=== PATIENT | male | born 1970 | race Two or more races ===

== ENCOUNTER 2024-03-12 14:54 | Emergency (ER) | payer MEDICAID ==
[~2024-03-12] VITALS: Ht 167.6 cm; Wt 77.3 kg
[2024-03-12 15:14] VITALS: BP 118/80; PULSE 110; RESP 18; TEMP 98.2; O2SAT 98
== END 2024-03-12 17:41 | disposition left against medical advice (07) ==
LOC: EMS 14:54
DX: M25.511 Pain in right shoulder (principal); Z53.21 Procedure and treatment not carried out due to patient leaving prior to being seen by health care provider
CPT/HCPCS: 93005

== ENCOUNTER 2024-03-13 17:10 | Emergency (ER) | payer MEDICAID ==
[~2024-03-13] VITALS: Ht 170.2 cm; Wt 68.2 kg
[2024-03-13 17:16] VITALS: BP 127/76; PULSE 114; RESP 16; TEMP 98.4; O2SAT 98
[2024-03-13] MEDS: IBUPROFEN 600 MG TABLET PO ONE (18:44)
== END 2024-03-13 18:50 | disposition home or self-care (01) ==
LOC: EMS 17:10
DX: M25.511 Pain in right shoulder (principal); F17.210 Nicotine dependence, cigarettes, uncomplicated
CPT/HCPCS: 99283

== ENCOUNTER 2024-07-04 18:30 | Emergency (ER) | payer MEDICAID ==
[~2024-07-04] VITALS: Ht 170.2 cm; Wt 75.0 kg
[2024-07-04 18:35] VITALS: TEMP 98.3
[2024-07-04] MEDS: KETOROLAC TROMETHAMINE 30 MG/ML VIAL IM ONE (19:56)
[2024-07-04] MEDS: LIDOCAINE 5% TRANSDERMAL PATCH TD ONE (19:57)
[2024-07-04] MEDS ORDERED: IBUP-1492 PO (20:43)
[2024-07-04 20:53] VITALS: BP 137/85; PULSE 70; RESP 18; O2SAT 97
== END 2024-07-04 20:56 | disposition home or self-care (01) ==
LOC: EMS 18:30
DX: M25.511 Pain in right shoulder (principal); F12.90 Cannabis use, unspecified, uncomplicated; F17.210 Nicotine dependence, cigarettes, uncomplicated
CPT/HCPCS: 99283; 73030; 96372; J1885

== ENCOUNTER 2024-11-12 18:15 | Emergency (ER) | payer MEDICAID ==
[~2024-11-12] VITALS: Ht 170.2 cm; Wt 72.7 kg
[~2024-11-12 18:15] MED LIST: IBUP-1492 PO
[2024-11-12 18:28] VITALS: TEMP 98.1
[2024-11-12 18:35] LABS: COVID AG,FIA SOURCE NASAL SWAB
[2024-11-12 19:00] LABS: SARS-COV2 (COVID) ANTIGEN,FIA Negative (Negative)
[2024-11-12 19:01] LABS: INFLUENZA TYPE A NEGATIVE FOR TYPE A (NEGATIVE); INFLUENZA TYPE B NEGATIVE FOR TYPE B (NEGATIVE)
[2024-11-12] MEDS ORDERED: AZIT250T9 PO (21:20)
[2024-11-12] MEDS: AZITHROMYCIN 500 MG TABLET PO ONE (21:23)
[2024-11-12] MEDS: ALBUTEROL SULFATE HFA 90 MCG/PUFF 8 GM INHALER IH ONE (21:27)
[2024-11-12 22:30] VITALS: BP 119/72; PULSE 97; RESP 17; O2SAT 98
[2024-11-12] MEDS: LIDOCAINE/PF 1% 2 ML VIAL IM ONE (22:43)
[2024-11-12] MEDS: CefTRIAXone SODIUM 1 GM/VIAL IM ONE (22:43)
== END 2024-11-12 22:50 | disposition home or self-care (01) ==
LOC: EMS 19:20
DX: J18.9 Pneumonia, unspecified organism (principal); F12.90 Cannabis use, unspecified, uncomplicated; F17.210 Nicotine dependence, cigarettes, uncomplicated; Z72.89 Other problems related to lifestyle; Z20.822 Contact with and (suspected) exposure to COVID-19
CPT/HCPCS: 99284; 71045; 87426; 87804; 96372; J0456; J0696; J3490; J3535

== ENCOUNTER 2024-12-13 13:05 | Emergency (ER) | payer MEDICAID ==
[~2024-12-13] VITALS: Ht 170.2 cm; Wt 70.5 kg
[2024-12-13 13:15] VITALS: TEMP 98.1
[2024-12-13 13:18] LABS: COVID AG,FIA SOURCE NASAL SWAB
[2024-12-13 13:38] LABS: INFLUENZA TYPE A NEGATIVE FOR TYPE A (NEGATIVE); INFLUENZA TYPE B NEGATIVE FOR TYPE B (NEGATIVE); SARS-COV2 (COVID) ANTIGEN,FIA Negative (Negative)
[2024-12-13] MEDS: ACETAMINOPHEN 500 MG TABLET PO ONE (13:46)
[2024-12-13 13:49] VITALS: BP 114/79; PULSE 108; RESP 18; O2SAT 100
[2024-12-13] MEDS ORDERED: ACET-3385 PO (14:05)
[2024-12-13] MEDS ORDERED: AZIT-164 PO (14:05)
[2024-12-13] MEDS: AZITHROMYCIN 500 MG TABLET PO ONE (14:10)
== END 2024-12-13 14:15 | disposition home or self-care (01) ==
LOC: EMS 13:08
DX: J18.9 Pneumonia, unspecified organism (principal); F17.210 Nicotine dependence, cigarettes, uncomplicated; F12.90 Cannabis use, unspecified, uncomplicated; F14.90 Cocaine use, unspecified, uncomplicated; Z72.89 Other problems related to lifestyle; Z98.890 Other specified postprocedural states; Z20.822 Contact with and (suspected) exposure to COVID-19
CPT/HCPCS: 99284; 71045; 87426; 87804; J0456

== ENCOUNTER 2025-06-14 16:35 | Emergency (ER) | payer MEDICAID ==
[~2025-06-14] VITALS: Ht 170.2 cm; Wt 72.7 kg
[~2025-06-14 16:35] MED LIST changes: +ACET-3385 PO; +AZIT-164 PO; -IBUP-1492 PO
[2025-06-14 16:43] VITALS: BP 120/81; PULSE 74; RESP 18; TEMP 99; O2SAT 99
[2025-06-14 16:47] LABS: COVID AG,FIA SOURCE NASAL SWAB
[2025-06-14 17:12] LABS: SARS-COV2 (COVID) ANTIGEN,FIA Negative (Negative)
[2025-06-14 17:13] LABS: INFLUENZA TYPE A NEGATIVE FOR TYPE A (NEGATIVE); INFLUENZA TYPE B NEGATIVE FOR TYPE B (NEGATIVE)
== END 2025-06-14 21:17 | disposition left against medical advice (07) ==
LOC: EMS 16:48
DX: R05.9 Cough, unspecified (principal); R52 Pain, unspecified; Z20.822 Contact with and (suspected) exposure to COVID-19; Z53.21 Procedure and treatment not carried out due to patient leaving prior to being seen by health care provider
CPT/HCPCS: 87804; 99281; Z7502